=== PATIENT | female | born 1940 | race Caucasian/White ===

== ENCOUNTER 2016-04-28 08:23 | Day surgery (SDC) | payer MEDICARE, OTHER ==
[~2016-04-28 08:23] MED LIST: ACIPHEX PO; ACULARLS OPH; ADVAIR INH; ADVAIR100 INH; ALLEGRA180 PO; AMITIZA8 MCG PO; ASAB PO; ATV.5 PO; ATV1 PO; BENTYL10 PO; CALTRA600D PO; CATAFLAM50 MG PO; CEREFOLI1 PO; CIP5 PO; COMBIVENT RESPIM4 GM INH; COREG3 PO; CRANBERRY1 TAB PO; CRESTOR20 MG PO; CYMBALTA60 PO; DILACOR XR PO; DRAMAMINE25 MG PO; DSS PO; ESTROPIPATE0.75 MG PO; FLONASE NAS; FOLIC PO; GLUCCHONDR PO; HYDROCHLOROT12.5 MG PO; IMDUR30 PO; IMDUR60 PO; ISOSORB DIN30 MG PO; KAON-CL-1010 MEQ PO; KAPIDEX60 MG PO; KLONO1 PO; KLONO5 PO; KLONOPIN WAF1 MG PO; KLOR-CON M2020 MEQ PO; L20 PO; L40 PO; LEVOTHROID175 MCG PO; LEVOTHYROXIN150 MCG PO; LEXAPRO20 PO; LIOR10 PO; LOP25 PO; LORTAB10 PO; MAXIMUM D3 PO; MCZ25 PO; MEDROLPAK4 PO; METHOC750B PO; MOBIC15 MG PO; MOBIC7.5 PO; MULTIPLE VIT PO; MULTIVITAMI1 PO; NEUR600 PO; NEXIUM40 PO; NORCO1 TAB PO; OPANA ER5 MG PO; OPANA5 MG PO; OSTEO BI FLEX PO; PERCOCET1 TA4 PO; PILOCARPINE5 MG OR; PLAVIX PO; PRAVAC PO; PRILO PO; PRILOSEC40 MG PO; REG5 PO; SALAGEN5 M1 OR; SINGULAIR1 PO; SPIRIVA INH; SUCR PO; SYN.15 PO; SYNTHROID175 MCG PO; TEARS NATURA OPH; TRAVATAN Z0.004 % OPH; TRAZ100 PO; TRAZ50 PO; TRIAMCINOLONE C80 GM TOP; VITAMIN D31000 UNIT PO; VOLT75 PO; ZANAFLEX 4 MG TA4 MG PO; [UNRECOGNIZED DRUG - OTHER] OP
== END 2016-04-28 23:59 | disposition home health service (06) ==
LOC: DMU 08:23
PROVIDERS: Internal Medicine Gastroenterology
PROC: 4A1B88Z Monitoring of Gastrointestinal Motility, Via Natural or Artificial Opening Endoscopic (ICD-10-PCS; principal; 2016-04-28 09:00)
DX: R13.10 Dysphagia, unspecified (principal); Z88.0 Allergy status to penicillin; Z88.5 Allergy status to narcotic agent; Z88.8 Allergy status to other drugs, medicaments and biological substances; Z98.890 Other specified postprocedural states
CPT/HCPCS: A9270-GY; C1894